=== PATIENT | male | born 1995 | race Caucasian/White ===

== ENCOUNTER 2017-08-25 12:25 | Emergency (ER) | payer MEDICAID, OTHER ==
--- NOTE | 2017-08-25 12:37 | C.PDOC ---
History Of Present Illness LIMITED DUE TO CLIN COND HX PER FAMILY, EMS AMS, POSSIBLE DRUG OD DIRECTOR COUNCIL ON AGING. EMS STATES PT FOUND OBVIOUS INTOX BUT NORMAL VITALS. NO MEDS GIVEN EN ROUTE. PT SPONT IMPROVED ALERTNESS ON ARRIVAL. MOM STATES WENT TO GET PT FROM ROOM, PT WAS SLOW TO RESPONSE AND DOOR WAS LOCKED. PT WALKED TO OPENED DOOR AND L ARM WAS ELEVATED, APPEARED INTOXICATED. HO POLYSUBSTANCE ABUSE PER FAMILY BUT UNK WHAT PT TOOK DIRECTOR COUNCIL ON AGING. ROS UTO EXAM MOD DIST NONTOXIC HEENT +NYSTAGMUS EOMI PERR SLUGGISH NEURO NO GROSS FOCAL DEF UNCOOP W INSTRUCTION PSYCH APPEARS INTOXICATED NONNARCOTIC CALM SKIN WARM DRY NARD CTA B/L NO W/R/R RRR ABD NEG Chief Complaint (Nursing): Substance Abuse History Per: EMS, Family History/Exam Limitations: clinical condition Onset/Duration Of Symptoms: Hrs Current Symptoms Are (Timing): Still Present Modifying Factor(s): Other (UNK) Recent travel outside of the [place]: No Past Medical History Reviewed: Historical Data, Nursing Documentation, Vital Signs Vital Signs: Last Vital Signs Temp 98.2 F 08/25/17 16:27 Pulse 92 H 08/25/17 16:27 Resp 16 08/25/17 16:27 BP 120/80 08/25/17 16:27 Pulse Ox 100 08/25/17 17:59 Family History: States: Unknown Family Hx - Social History Hx Tobacco Use: Yes Hx Alcohol Use: No Hx Substance Use: No - Immunization History Hx Tetanus Toxoid Vaccination: No Hx Influenza Vaccination: No Review Of Systems Review Of Systems: ROS cannot be obtained secondary to pt's inabilty to answer questions. Physical Exam - Physical Exam Appears: Non-toxic, Other (MODERATE DISTRESS) Skin: Warm, Dry Head: Atraumatic, Normacephalic Eye(s): bilateral: PERRL, EOMI, Other (+NYSTAGMUS; SLUGGISH) Oral Mucosa: Moist Chest: Symmetrical Cardiovascular: Rhythm Regular Respiratory: Normal Breath Sounds, No Rales, No Rhonchi, No Wheezing, Other ( NARD. LUNGS CTA.) Gastrointestinal/Abdominal: Soft, No Tenderness, No Guarding, No Rebound Back: Normal Inspection Extremity: Normal ROM Neurological/Psych: Other (NEURO: NO GROSS FOCAL DEFICITS. UNCOOPERATIVE W INSTRUCTION. PSYCH: APPEARS INTOXICATED NONNARCOTIC, CALM.) ED Course And Treatment - Laboratory Results Result Diagrams: 08/25/17 12:54 08/25/17 12:54 ECG: Interpreted By Me ECG Rhythm: Sinus Rhythm ECG Interpretation: Normal Rate From EC O2 Sat by Pulse Oximetry: 100 (RA) Pulse Ox Interpretation: Normal - Radiology CXR: Interpreted by Me CXR Interpretation: Yes: No Acute Disease Progress - Re-Evaluation Re-evaluation Note: 08/25/17 13:00 CODE SHAH, AGITATED AND FIGHTING STAFF. WILL GIVE MEDS 08/25/17 16:13 SLEEPING NARD. REMAINS SEDATED. 08/25/17 17:57 AO3, CLEAR SPEECH AND STEADY GAIT. PT DOES NOT WISH FAMILY TO STAY IN ER. NO S/ S ACUTE INTOX. DETOX REFERRAL INFO GIVEN - Data Reviewed Data Reviewed: Lab, Diagnostic imaging, EKG, Old records - Critical Care Citical Care: Excluding Proc Time Critical Care Time: 120 minutes - Continuity of Care Discussed patient case with:: Family-HIPPA compliant Disposition Counseled Patient/Family Regarding: Diagnosis, Need For Followup - Disposition Referrals: [facility] [Outside] [facility] [Outside] [facility] [Provider Group] Disposition: HOME/ ROUTINE Disposition Time: 17:58 Condition: IMPROVED Instructions: Polysubstance Abuse (ED) Forms: [facility] ([place]ive[place]) - Clinical Impression Clinical Impression: PCP intoxication - Scribe Statement The provider has reviewed the documentation as recorded by the Scribe SM All medical record entries made by the Scribe were at my direction and personally dictated by me. I have reviewed the chart and agree that the record accurately reflects my personal performance of the history, physical exam, medical decision making, and the department course for this patient. I have also personally directed, reviewed, and agree with the discharge instructions and disposition.
[2017-08-25 13:03] LABS: BASO % 0.8 % (0.0-2.0); EOS % 1.1 % (0.0-4.0); HEMATOCRIT 44.2 % (35.0-51.0); LYMPH # 1.3 K/uL (1.0-4.3); LYMPH % 37.2 % (20.0-40.0); MEAN CORPUSCULAR HEMOGLOBIN 28.9 pg (27.0-31.0); MEAN PLATELET VOLUME 10.2 fL (7.2-11.7); MONO # 0.4 K/uL (0.0-0.8); NRBC % 0.1 % (0.0-2.0); RED CELL DISTRIBUTION WIDTH 13.2 % (11.5-14.5); WHITE BLOOD COUNT 3.6 K/uL (4.8-10.8)
[2017-08-25 13:08] LABS: CHLORIDE 100 mmol/L (98-107); POTASSIUM 3.9 mmol/L (3.6-5.2); SODIUM 137 mmol/L (132-148)
[2017-08-25 13:10] LABS: BILIRUBIN,TOTAL 0.5 mg/dL (0.2-1.3); GFR AFRICAN-AMERICAN > 60
[2017-08-25 13:11] LABS: ALB/GLOB RATIO 1.4 (1.0-2.1); ALKALINE PHOSPHATASE 51 U/L (38-126); ALT/SGPT 39 U/L (21-72); AST/SGOT 22 U/L (17-59); BLOOD UREA NITROGEN 14 mg/dL (9-20); CARBON DIOXIDE 26 mmol/L (22-30); GLUCOSE,RANDOM 102 mg/dL (75-110); TOTAL PROTEIN 7.8 g/dL (6.3-8.3)
[2017-08-25 13:12] LABS: ALCOHOL SERUM < 10 mg/dl (0-10)
--- NOTE | 2017-08-25 13:40 | RAD ---
PROCEDURE: CHEST RADIOGRAPH, 1 VIEW. Technique: Single view portable semi erect @ 12:35. HISTORY: Overdosed COMPARISON: None available. FINDINGS: LUNGS: Clear. PLEURA: No pneumothorax or pleural fluid seen. CARDIOVASCULAR: Normal. OSSEOUS STRUCTURES: No significant abnormalities. VISUALIZED UPPER ABDOMEN: Normal. OTHER FINDINGS: None. IMPRESSION: No active disease. Concordant results with the preliminary interpretation rendered by the emergency department physician procedure.
[2017-08-25 14:18] LABS: URINE BILIRUBIN NEGATIVE (NEGATIVE); URINE BLOOD 1+ (NEGATIVE); URINE COLOR Straw (YELLOW); URINE GLUCOSE (UA) NORMAL (Normal); URINE KETONE NEGATIVE (NEGATIVE); URINE LEUKOCYTE ESTERASE NEG Leu/uL (Negative); URINE PROTEIN NEGATIVE (NEGATIVE); URINE UROBILINOGEN NORMAL mg/dL (0.2-1.0)
[2017-08-25 15:36] VITALS: RESP 16
--- NOTE | 2017-08-25 15:49 | CT ---
PROCEDURE: CT HEAD WITHOUT CONTRAST. HISTORY: Overdose COMPARISON: None available. TECHNIQUE: Axial computed tomography images were obtained through the head/brain without intravenous contrast. Radiation dose: Total exam DLP = 868.76 mGy-cm. This CT exam was performed using one or more of the following dose reduction techniques: Automated exposure control, adjustment of the mA and/or kV according to patient size, and/or use of iterative reconstruction technique. FINDINGS: HEMORRHAGE: No intracranial hemorrhage. BRAIN: Normal rubio-white matter differentiation and density are appreciated throughout the cerebrum and cerebellum with the brainstem appearing unremarkable as well. There is no mass effect. There is no suspicious extra-axial fluid collection in the midline brain anatomy appears diffusely unremarkable. VENTRICLES: Unremarkable. No hydrocephalus. CALVARIUM: Unremarkable. PARANASAL SINUSES: Unremarkable as visualized. No significant inflammatory changes. MASTOID AIR CELLS: Unremarkable as visualized. No inflammatory changes. OTHER FINDINGS: None. IMPRESSION: Normal appearing unenhanced CT of the Head.
[2017-08-25 18:08] VITALS: BP 137/80; PULSE 80; TEMP 97.6; O2SAT 98
--- NOTE | 2017-08-26 13:42 | CARD ---
APPROVED REPORT EKG Measurement Heart [id number] <Conclusion> Normal sinus rhythm Minimal voltage criteria for LVH, may be normal variant Borderline ECG
== END 2017-08-25 18:17 | disposition home or self-care (01) ==
LOC: C.ER 12:25
DX: F16.10 Hallucinogen abuse, uncomplicated (principal)
CPT/HCPCS: 70450; 71010; 80053; 80320; 80324; 80329; 80345; 80346; 80349; 80353; 80358; 80361; 81001; 82948; 83992; 85025; 93005; 96372; 96374; 99285; J2060; J3486

== ENCOUNTER 2017-11-01 23:59 | Emergency (ER) | payer MEDICAID ==
--- NOTE | 2017-11-02 01:01 | C.PDOC ---
Time Seen by Provider: 11/02/17 00:30 Chief Complaint (Nursing): Substance Abuse Past Medical History Vital Signs: Last Vital Signs Temp 98.1 F 11/02/17 00:06 Pulse 88 11/02/17 00:06 Resp 18 11/02/17 00:06 BP 149/72 11/02/17 00:06 Pulse Ox 98 11/02/17 00:06 Family History: States: Unknown Family Hx - Social History Hx Tobacco Use: Yes Hx Alcohol Use: No Hx Substance Use: Yes - Immunization History Hx Tetanus Toxoid Vaccination: No Hx Influenza Vaccination: No Hx Pneumococcal Vaccination: No ED Course And Treatment O2 Sat by Pulse Oximetry: 98 Disposition - Disposition Referrals: Non [facility] Provider, [Primary Care Provider] -
--- NOTE | 2017-11-02 01:08 | C.PDOC ---
History Of Present Illness Marissa Messer is a 22 year old male, with no past medical history, who was brought to the emergency department by EMS accompanied by sister for pcp use. Patient is agitated and combative. Patient was placed in 4 points for the safety of the patient. PMD: None provided. 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) Current Symptoms Are (Timing): Still Present Suicide/Self Injury Attempted (Context): None Modifying Factor(s): Other Severity: Moderate Pain Scale Rating Of: 4 Associated Symptoms: Agitation (combative) Recent travel outside of the [place]: No Additional History Per: EMS, Family Past Medical History Reviewed: Historical Data, Nursing Documentation, Vital Signs Vital Signs: Last Vital Signs Temp 98.1 F 11/02/17 00:06 Pulse 64 11/02/17 04:47 Resp 16 11/02/17 04:47 BP 103/56 L 11/02/17 04:47 Pulse Ox 99 11/02/17 04:47 Surgical History: No Surg Hx Family History: States: Unknown Family Hx - Social History Hx Tobacco Use: Yes Hx Alcohol Use: No Hx Substance Use: Yes - Immunization History Hx Tetanus Toxoid Vaccination: No Hx Influenza Vaccination: No Hx Pneumococcal Vaccination: No Review Of Systems Psych: Positive for: Other (agitated and combative) Physical Exam - Physical Exam Skin: Warm, Dry Head: Normacephalic Neck: Normal, Normal ROM, Supple Cardiovascular: Rhythm Regular Respiratory: No Accessory Muscle Use, No Rales, No Rhonchi, No Wheezing Extremity: Normal ROM Disoriented To: Time ED Course And Treatment O2 Sat by Pulse Oximetry: 98 (RA) Pulse Ox Interpretation: Normal Progress Note: Initial Impression: Substance abuse. Initial Plan: --Ativan 2 mg IM. --1:1 Observation Reevaluation Time: 05:23 Reassessment Condition: Improved Disposition Counseled Patient/Family Regarding: Diagnosis, Need For Followup - Disposition Referrals: [facility] [Outside] Disposition: HOME/ ROUTINE Disposition Time: 05:23 Condition: FAIR Instructions: Polysubstance Abuse (ED) Forms: [facility] ([place]) - Clinical Impression Clinical Impression: PCP intoxication - Scribe Statement John Alcazar Provider Attestation: All medical record entries made by the Scribe were at my direction and personally dictated by me. I have reviewed the chart and agree that the record accurately reflects my personal performance of the history, physical exam, medical decision making, and the department course for this patient. I have also personally directed, reviewed, and agree with the discharge instructions and disposition.
[2017-11-02 04:48] VITALS: RESP 16
[2017-11-02 05:46] VITALS: BP 132/80; PULSE 100; TEMP 97.6; O2SAT 99
== END 2017-11-02 05:30 | disposition home or self-care (01) ==
LOC: C.ER 23:59 → SUPCPDRO 23:59 → C.ER 11-02 05:30
DX: F16.129 Hallucinogen abuse with intoxication, unspecified (principal)
CPT/HCPCS: 96372; 99285; J1630; J2060